=== PATIENT | female | born 1955 | race Caucasian/White ===

== ENCOUNTER → 2024-03-05 06:35 | Day surgery (SDC) | payer MEDICARE, SELFPAY | LOC: GI 06:35 | PROVIDERS: ATTENDING PHYSICIAN Specialist | DX: R19.4 Change in bowel habit (principal) | CPT/HCPCS: 45380; 88305 ==

== ENCOUNTER 2024-11-28 18:20 | Emergency (ER) | payer MEDICARE, SELFPAY ==
[2024-11-28 18:28] VITALS: BP 130/100
--- NOTE | 2024-11-28 19:42 | ED.GENMED ---
History of Present Illness
<Rupinder Cabrera PA-C - Last Filed: 11/29/24 01:24>
General
Chief Complaint: Vaginal Bleeding
Source: patient and spouse
Exam Limitations: none
Time Seen by Provider: 11/28/24 19:22
History of Present Illness
History of Present Illness:
69yoF with a history of multiple sclerosis presenting with her for evaluation of vaginal bleeding. Patient had a punch biopsy of the left labia [address] Glover due to concern for lichen sclerosus. Patient has had mild spotting
since the biopsy. About 2 to 3 hours ago, she started having heavier vaginal bleeding and noticed clots which prompted them to come to the ED. She reports some mild soreness in the area as well. Patient is otherwise asymptomatic and
denies any dizziness, syncope, shortness of breath. She does not take any anticoagulants.
Past History
<Rupinder Cabrera PA-C - Last Filed: 11/29/24 01:24>
Past History
ED Past Medical History: Other (MS, frequent UTIs, neurogenic bladder, trigeminal neuralgia)
Social History
Tobacco: Non-smoker
Alcohol: None
Personal:
Family History
Family History: CAD and Other (Mother with diverticulitis)
Phy Exam
<Rupinder Cabrera PA-C - Last Filed: 11/29/24 01:24>
General Physical Exam
General Presentation: well appearing and no apparent distress
General age: appears stated age
General Skin: warm and dry
General Habitus: normal
General Mental: alert
ENT Exam
ENT Exam: normocephalic
Gastrointestinal Exam
Gastrointestinal Exam: non tender, soft and non distended
Genitourinary Exam Female
Exam Female: other (Large clots noted in underwear. Circular area noted to L labia minora in area of recent punch biopsy with venous oozing. )
Neurological Exam
Neurological Exam: alert
Hoffman Coma Scale
Eye Opening: Spontaneous
Verbal Response: Oriented
Motor Response: Obeys Commands
GCS Total Score: 15
Skin Exam
Skin Exam: normal color and warm/dry
Psychiatric Exam
Psychiatric Exam: normal mood/affect
Course
<Rupinder Cabrera PA-C - Last Filed: 11/29/24 01:24>
Orders/Labs/Results
Orders:
Orders
11/28/24 19:48
Complete Blood Count/With Diff Urgent
Comprehensive Metabolic Panel Urgent
PTT Urgent
Prothrombin Time Urgent
Abnormal Lab Results
11/28/24
19:48
Immature Gran % 0.7 H %
(0-0.5)
Monocytes % 9.5 H %
(1.7-9.3)
BUN 23 H mg/dl
(7-17)
Creatinine 0.5 L mg/dL
(0.6-1.0)
Glucose 100 H mg/dl
(70-99)
11/28/24 19:48
11/28/24 19:48
Vital Signs
Initial and Last Documented VS:
Initial Vital Signs
Temp Pulse Resp Pulse Ox
98.0 F 82 16 98
11/28/24 18:24 11/28/24 18:24 11/28/24 18:24 11/28/24 18:24
Last Documented Vital Signs
Temp Pulse Resp BP Pulse Ox
98.0 F 79 16 121/68 98
11/28/24 18:24 11/28/24 21:40 11/28/24 18:24 11/28/24 21:40 11/28/24 21:40
<Cristina Dupree MD - Last Filed: 11/28/24 20:48>
Orders/Labs/Results
Orders:
Orders
11/28/24 19:48
Complete Blood Count/With Diff Urgent
Comprehensive Metabolic Panel Urgent
PTT Urgent
Prothrombin Time Urgent
Abnormal Lab Results
11/28/24
19:48
Immature Gran % 0.7 H %
(0-0.5)
Monocytes % 9.5 H %
(1.7-9.3)
BUN 23 H mg/dl
(7-17)
Creatinine 0.5 L mg/dL
(0.6-1.0)
Glucose 100 H mg/dl
(70-99)
11/28/24 19:48
11/28/24 19:48
Vital Signs
Initial and Last Documented VS:
Initial Vital Signs
Temp Pulse Resp Pulse Ox
98.0 F 82 16 98
11/28/24 18:24 11/28/24 18:24 11/28/24 18:24 11/28/24 18:24
Last Documented Vital Signs
Temp Pulse Resp BP Pulse Ox
98.0 F 79 16 121/68 98
11/28/24 18:24 11/28/24 21:40 11/28/24 18:24 11/28/24 21:40 11/28/24 21:40
Abdilt;Rupinder Cabrera PA-C - Last Filed: 11/29/24 01:24>
MDM/Problems Addressed
Differential Diagnosis Includes:
69yoF here with vaginal bleeding. Had a punch biopsy of the L labia 3 days ago. Started having heavy bleeding with clots 2-3 hours ago. VSS. Large clots noted in underwear. There is venous oozing noted from the area of recent punch biopsy on exam.
Differential diagnosis includes: postprocedural bleeding, coagulopathy, anemia
Case was discussed with Dr. Glover who recommends silver nitrate or suture to help with the bleeding. Silver nitrate applied to the area with hemostasis. Labs obtained and hemoglobin is stable at 13.8. Patient is stable for discharge. She was
advised to follow-up with her publisher assistant. ED return precautions reviewed. Patient discharged in stable condition with her .
<Rupinder Cabrera PA-C - Last Filed: 11/29/24 01:24>
*Critical Care Note
Total Time (30-74mins, 75-104mins- exclusive of procedures): Not Applicable
ED Attending Note
<Rupinder Cabrera PA-C - Last Filed: 11/29/24 01:24>
-
Portions of this chart may have been created with voice recognition software.� Occasional wrong word or��sound alike� substitutions may have occurred due to the inherent limitations of voice recognition software.
<Cristina Dupree MD - Last Filed: 11/28/24 20:48>
ED Attending Note
Patient seen and examined by attending physician: Yes
I performed the substantive portion of visit, reviewed & personally made and approve the management plan that is documented in note by myself or TRINO.: Yes
ED Attending Note:
Patient has oozing of blood from circular postoperative incision along patient's left inner labia majora. Silver nitrate applied. Bleeding seems to have slowed down. Patient is otherwise well and comfortable. She appears well-perfused and fully
awake and alert.
Discharge Plan
Departure
Patient Disposition: Home (Routine Discharge)
Date of Disposition: 11/28/24
Time of Disposition: 21:25
Patient with high blood pressure during this ER visit?: No
Discharge Problem:
Vulvar bleeding
Instructions: Skin Biopsy
Prescriptions:
No Action
baclofen 10 MG tablet
10 mg PO BID
simvastatin 20 MG tablet
20 mg PO DAILY
estradiol [Estring] 1 VAG.RING ring
2 mg VG BID
oxybutynin chloride 5 MG tablet
5 mg PO BID
dalfampridine [Ampyra] 10 MG tablet extended release 12 hr
20 mg PO DAILY
quetiapine 25 MG tablet
1 tab PO BID
Patient Comments:
New prescription - first dose today.
nystatin 1 APPLIC powder
1 applic TOP TID
Referrals:
Dago Tesfaye, [Family Provider] -
Activity Restrictions/Additional Instructions:
Please follow-up with Dr. Glover. Return to the ER with any worsening symptoms or bleeding that does not resolve with direct pressure.
Interventions
Interventions:
*Risk Screen - Suicide Last Done: 11/28/24 18:24
*General Assessment Last Done: 11/28/24 21:41
*Neglect/Abuse Screening Last Done: 11/28/24 18:24
*ED- Fall Risk Assessment Last Done: 11/28/24 21:41
*ED COVID-19 Vaccine History Last Done: 11/28/24 21:41
*Nursing Disposition Last Done: 11/28/24 21:41
ED-Female Genitourinary Assessment Last Done: 11/28/24 21:41
Discharge Date and Time
Discharge Date/Time: 11/28/24 21:42
Print Language: LIBYAN
[2024-11-28 19:56] LABS: % Basophils 1.2 % (0-2); % Eosinophils 1.7 % (0-6); % Immature Granulocytes 0.7 % (0-0.5); % Lymphocytes 25.5 % (20.5-51.1); % Monocytes 9.5 % (1.7-9.3); % Neutrophils 61.4 % (42.2-75.2); Absolute Basophils 0.1 10^3/uL (0-0.2); Absolute Eosinophils 0.1 10^3/uL (0-0.7); Absolute Lymphocytes 1.5 10^3/uL (1.2-3.4); Absolute Monocytes 0.6 10^3/uL (0.1-0.6); Absolute Neutrophils 3.6 10^3/uL (1.4-6.5); Hemoglobin 13.8 g/dL (12.0-16.0); Mean Corp Hgb Conc. 34.5 g/dL (33.0-37.0); Mean Corpuscular Hgb 30.6 pg (27.0-31.0); Mean Corpuscular Volume 88.7 fL (81.0-99.0); Mean Platelet Volume 8.8 fL (7.4-10.4); Nucleated Red Blood Cells % 0 %; Platelet Count 268 10^3/uL (130-400); Red Blood Cell Count 4.51 10^6/uL (4.20-5.40); Red Cell Dist. Width 12.4 % (11.5-14.5); White Blood Cell Count 5.9 10^3/uL (4.8-10.8)
[2024-11-28 20:10] LABS: INR 0.93
[2024-11-28 20:11] LABS: ALT (SGPT) 17 U/L (0-35); APTT 31.2 Sec (23.4-35.0); AST (SGOT) 27 U/L (14-36); Albumin 4.5 g/dl (3.5-5.0); Alkaline Phosphatase 77 U/L (38-126); Blood Urea Nitrogen 23 mg/dl (7-17); Calcium 9.6 mg/dl (8.4-10.2); Carbon Dioxide 26 mmol/L (22-30); Chloride 100 mmol/L (98-107); Glucose 100 mg/dl (70-99); Potassium 4.3 mmol/L (3.5-5.1); Sodium 135 mmol/L (135-145); Total Bilirubin 0.5 mg/dl (0.2-1.3); eGFR > 60.00
[2024-11-28 21:40] VITALS: BP 121/68
== END 2024-11-28 21:42 | disposition home or self-care (01) ==
LOC: EMR 18:20
PROVIDERS: Physician Assistant; EMERGENCY PHYSICIAN Emergency Medicine; FAMILY PHYSICIAN Internal Medicine
DX: N99.820 Postprocedural hemorrhage of a genitourinary system organ or structure following a genitourinary system procedure (principal); Y84.8 Other medical procedures as the cause of abnormal reaction of the patient, or of later complication, without mention of misadventure at the time of the procedure; G35 Multiple sclerosis; Z87.440 Personal history of urinary (tract) infections
CPT/HCPCS: 99283; 80053; 85025; 85610; 85730

== ENCOUNTER → 2025-05-09 09:30 | Outpatient (REF) | payer SELFPAY | LOC: HWRAD 09:30 | PROVIDERS: ATTENDING PHYSICIAN Internal Medicine | DX: E78.5 Hyperlipidemia, unspecified (principal) | CPT/HCPCS: 75571 ==

== ENCOUNTER → 2025-05-09 09:36 | Outpatient (REF) | payer MEDICARE, SELFPAY | LOC: HWWDC 09:36 | PROVIDERS: ATTENDING PHYSICIAN Obstetrics & Gynecology; FAMILY PHYSICIAN Internal Medicine | DX: N39.41 Urge incontinence (principal); N31.9 Neuromuscular dysfunction of bladder, unspecified; Z12.31 Encounter for screening mammogram for malignant neoplasm of breast; Z78.0 Asymptomatic menopausal state | CPT/HCPCS: 76770; 77063; 77067; 77080 ==